=== PATIENT | female | born 1955 | race Caucasian/White ===

== ENCOUNTER 2016-09-20 11:32 | Emergency (ER) | payer MEDICARE, MEDICAID ==
[~2016-09-20] VITALS: Ht 160 cm; Wt 73.0 kg
[~2016-09-20 11:32] MED LIST: IBUP-1510 PO; LEVO125T8 PO; METH2.5T PO; PRED10TA23 PO; SULF500T8 PO
[2016-09-20] MEDS ORDERED: SODIUM CHLORIDE 0.9% 1,000 ML IV ONE (11:47)
[2016-09-20] MEDS ORDERED: ONDANSETRON HCL 4MG/2ML VIAL IV ONE (12:00)
[2016-09-20] MEDS ORDERED: MORPHINE SULFATE 4 MG/ML CPJ (NOT FOR IM USE) IV ONE (12:00)
[2016-09-20 12:08] LABS: BASOPHILS % 0.9 % (0.0-2.0); EOSINOPHILS % 3.7 % (0.0-5.0); HEMATOCRIT. 38.4 % (36.0-48.0); HEMOGLOBIN. 12.7 g/dL (12.0-16.0); MEAN CORPUSCULAR HEMOGLOBIN 28.8 pg (28.0-32.0); MEAN CORPUSCULAR VOLUME 87.4 fL (81.0-99.0); MEAN PLATELET VOLUME 8.2 fl (7.4-10.4); MONOCYTES % 6.2 % (2.0-8.0); NEUTROPHILS % 68.2 % (40.0-76.0); PLATELET 265 x1000/uL (130-400); RED BLOOD CELL COUNT 4.39 mill/uL (4.2-5.4); RED CELL DISTRIBUTION WIDTH 14.8 % (11.6-14.6); WHITE BLOOD COUNT 6.4 x1000/uL (4.5-11.0)
[2016-09-20 12:14] LABS: PROTHROMBIN TIME 10.8 sec
[2016-09-20 12:21] VITALS: BP 140/63
[2016-09-20 12:24] LABS: ALANINE AMINOTRANSFERASE 17 IU/L (13-61); ALBUMIN 3.7 g/dL (3.4-5.0); ANION GAP 13; CALCIUM 9.4 mg/dL (8.5-10.1); CARBON DIOXIDE 26 mEq/L (21-32); CHLORIDE 101 mEq/L (98-107); INDEX HEMOLYSI 1 (1-3); INDEX ICTERIC 1 (1-4); INDEX LIPEMIC 1 (1-3); LIPASE 133 IU/L (73-393); NT PRO B-TYPE NATRIURETIC PEP 49 pg/mL (5-125); TROPONIN I < 0.02 ng/mL (0.00-0.04); UREA NITROGEN BLOOD 10 mg/dL (7-21); eGFR > 60 mL/min (>60)
[2016-09-20 13:24] LABS: CLARITY URINE CLEAR (CLEAR); COLOR URINE YELLOW (YELLOW); GLUCOSE URINE NEGATIVE (NEGATIVE); KETONES URINE NEGATIVE (NEGATIVE); LEUKOCYTE ESTERASE URINE NEGATIVE (NEGATIVE); NITRITE URINE NEGATIVE (NEGATIVE); OCCULT BLOOD URINE NEGATIVE (NEGATIVE); PH URINE >=9.0 (4.5-8.0); PROTEIN URINE NEGATIVE (NEGATIVE); SPECIFIC GRAVITY URINE 1.011 (1.005-1.030); UROBILINOGEN URINE 0.2 E.U./dL (0.2-1.0)
== END 2016-09-20 15:04 | disposition home or self-care (01) ==
LOC: ER 13:21
DX: M51.26 Other intervertebral disc displacement, lumbar region (principal); M54.2 Cervicalgia; R10.32 Left lower quadrant pain; R07.89 Other chest pain; I10 Essential (primary) hypertension; E03.9 Hypothyroidism, unspecified; E11.9 Type 2 diabetes mellitus without complications; K57.30 Diverticulosis of large intestine without perforation or abscess without bleeding
CPT/HCPCS: 36415; 71010; 72131; 74176; 80053; 81003; 82962; 83605; 83690; 83880; 84484; 85025; 85610; 93005; 96361; 96374; 96375; 99285; J2270; J2405; J7030

== ENCOUNTER → 2017-03-15 | Outpatient (CLI) | payer MEDICARE, MEDICAID ==
[~2017-03-15] MED LIST changes: +GADOBENATE DIMEGLUMINE 529 MG/ML 10ML IV ONE; -IBUP-1510 PO; +IBUP-2030 PO
== END | disposition home or self-care (01) ==
LOC: MRI 10:05
PROVIDERS: ATTEND Neurological Surgery
DX: R51 Headache (principal)
CPT/HCPCS: 70553; A9577

== ENCOUNTER 2017-05-08 09:55 | Emergency (ER) | payer MEDICARE, MEDICAID ==
[~2017-05-08] VITALS: Ht 165.1 cm; Wt 75.0 kg
[~2017-05-08 09:55] MED LIST changes: -GADOBENATE DIMEGLUMINE 529 MG/ML 10ML IV ONE
[2017-05-08] MEDS ORDERED: LORAZEPAM 2MG/ML CPJ IV ONE (10:45)
[2017-05-08 10:59] LABS: CLARITY URINE CLOUDY (CLEAR); COLOR URINE YELLOW (YELLOW); GLUCOSE URINE NEGATIVE (NEGATIVE); KETONES URINE NEGATIVE (NEGATIVE); LEUKOCYTE ESTERASE URINE TRACE (NEGATIVE); NITRITE URINE NEGATIVE (NEGATIVE); OCCULT BLOOD URINE NEGATIVE (NEGATIVE); PH URINE >=9.0 (4.5-8.0); PROTEIN URINE NEGATIVE (NEGATIVE); SPECIFIC GRAVITY URINE 1.019 (1.005-1.030); UROBILINOGEN URINE 0.2 E.U./dL (0.2-1.0)
[2017-05-08 11:21] LABS: *AMPHETAMINES SCREEN URINE NEGATIVE (NEGATIVE); *BARBITURATES SCREEN URINE NEGATIVE (NEGATIVE); *BENZODIAZEPINES SCREEN URINE NEGATIVE (NEGATIVE); *COCAINE SCREEN URINE NEGATIVE (NEGATIVE); CANNABINOID URINE SCREEN NEGATIVE (NEGATIVE); METHADONE URINE SCREEN NEGATIVE (NEGATIVE); OPIATES URINE SCREEN NEGATIVE (NEGATIVE); PHENCYCLIDINE URINE SCREEN NEGATIVE (NEGATIVE)
[2017-05-08 11:21] LABS: BASOPHILS % 0.4 % (0.0-2.0); EOSINOPHILS % 1.7 % (0.0-5.0); HEMATOCRIT. 41.4 % (36.0-48.0); HEMOGLOBIN. 13.5 g/dL (12.0-16.0); LYMPHOCYTES % 12.8 % (20.0-50.0); MEAN CORPUSCULAR VOLUME 89.1 fL (81.0-99.0); MEAN PLATELET VOLUME 8.2 fl (7.4-10.4); MONOCYTES % 2.6 % (2.0-8.0); NEUTROPHILS % 82.5 % (40.0-76.0); PLATELET 264 x1000/uL (130-400); RED BLOOD CELL COUNT 4.64 mill/uL (4.2-5.4); RED CELL DISTRIBUTION WIDTH 13.8 % (11.6-14.6)
[2017-05-08 11:24] LABS: PROTHROMBIN TIME 10.8 sec (9.4-11.6)
[2017-05-08 11:34] LABS: CARBON DIOXIDE 26 mEq/L (21-32); CHLORIDE 101 mEq/L (98-107); TROPONIN I < 0.02 ng/mL (0.00-0.04)
[2017-05-08] MEDS ORDERED: METOCLOPRAMIDE HCL 10MG/2ML VIAL IV NR (13:00)
[2017-05-08 14:02] VITALS: BP 125/74
== END 2017-05-08 15:50 | disposition home or self-care (01) ==
LOC: ER 10:18
DX: F41.9 Anxiety disorder, unspecified (principal); R42 Dizziness and giddiness; R51 Headache; R11.0 Nausea; R00.2 Palpitations; I10 Essential (primary) hypertension; E11.9 Type 2 diabetes mellitus without complications; E03.9 Hypothyroidism, unspecified; R79.1 Abnormal coagulation profile; R20.2 Paresthesia of skin
CPT/HCPCS: 36415; 70450; 71010; 80053; 80305; 81001; 82962; 83605; 83690; 83880; 84484; 85025; 85610; 87040; 87086; 93005; 96374; 96375; 99285; J2060; J2765

== ENCOUNTER 2023-08-25 15:28 | Emergency (ER) | payer MEDICARE, MEDICAID ==
[~2023-08-25] VITALS: Ht 162.6 cm; Wt 77.0 kg
[2023-08-25 15:42] VITALS: O2SAT 100
[2023-08-25 16:17] LABS: BASOPHILS % 0.9 % (0.0-2.0); EOSINOPHILS % 2.8 % (0.0-5.0); HEMATOCRIT. 38.4 % (36.0-48.0); HEMOGLOBIN. 12.8 g/dL (12.0-16.0); LYMPHOCYTES % 25.5 % (20.0-50.0); MEAN CORPUSCULAR HEMOGLOBIN 31.4 pg (28.0-32.0); MEAN CORPUSCULAR HGB CONC 33.3 g/dL (31.0-37.0); MEAN CORPUSCULAR VOLUME 94.5 fL (81.0-99.0); MEAN PLATELET VOLUME 9.1 fl (7.4-10.4); MONOCYTES % 7.5 % (2.0-8.0); NEUTROPHILS % 63.3 % (40.0-76.0); PLATELET 219 x1000/uL (130-400); RED BLOOD CELL COUNT 4.06 mill/uL (4.2-5.4); RED CELL DISTRIBUTION WIDTH 14.5 % (11.6-14.6)
[2023-08-25 16:32] LABS: ALANINE AMINOTRANSFERASE 15 IU/L (10-49); ALBUMIN 4.4 g/dL (3.2-4.8); ASPARTATE AMINOTRANSFERASE 22 IU/L (<34); CALCIUM 9.3 mg/dL (8.7-10.4); CARBON DIOXIDE 23 mEq/L (21-32); CHLORIDE 101 mEq/L (98-107); CREATININE 0.7 mg/dL (0.6-1.0); GLUCOSE 93 mg/dL (70-105); POTASSIUM 3.8 mEq/L (3.5-5.1); SODIUM 130 mEq/L (136-145); UREA NITROGEN BLOOD 11 mg/dL (9-23)
[2023-08-25 16:36] LABS: TROPONIN I HIGH SENSITIVITY < 4 ng/L (3.0-34)
[2023-08-25] MEDS ORDERED: ONDANSETRON HCL 4MG/2ML INJ IV ONE (17:00)
[2023-08-25] MEDS ORDERED: MORPHINE SULFATE 4 MG/ML INJ (FOR IV/IM USE) IV ONE (17:00)
[2023-08-25 17:35] LABS: CLARITY URINE CLEAR (CLEAR); COLOR URINE DARK YELLOW (YELLOW); GLUCOSE URINE NEGATIVE (NEGATIVE); KETONES URINE 1+ (NEGATIVE); LEUKOCYTE ESTERASE URINE 1+ (NEGATIVE); NITRITE URINE NEGATIVE (NEGATIVE); OCCULT BLOOD URINE NEGATIVE (NEGATIVE); PH URINE 7.5 (4.5-8.0); PROTEIN URINE TRACE (NEGATIVE); SPECIFIC GRAVITY URINE 1.019 (1.005-1.030)
[2023-08-25 17:46] LABS: BACTERIA URINE 1+; RBC URINE 0-2 /hpf (0-2); SQUAMOUS EPITHELIAL CELL URINE 1+ /lpf (RARE/1+)
[2023-08-25] MEDS: SODIUM CHLORIDE 0.9% 1,000 ML IV ONE (19:02)
[2023-08-25] MEDS: CEFTRIAXONE 1GM/50ML 50 ML IV ONE (19:02)
[2023-08-25] MEDS: MORPHINE SULFATE 4 MG/ML INJ (FOR IV/IM USE) IV NR (19:03)
[2023-08-25] MEDS: ONDANSETRON HCL 4MG/2ML INJ IV NR (19:03)
[2023-08-25 19:13] VITALS: BP 174/81; PULSE 69; RESP 18; TEMP 98.2
[2023-08-25] MEDS ORDERED: CEPH500T MT (19:17)
[2023-08-25] MEDS ORDERED: ONDA4TAB11 PO (19:17)
== END 2023-08-25 20:12 | disposition home or self-care (01) ==
LOC: ER 15:28
DX: N39.0 Urinary tract infection, site not specified (principal); R10.32 Left lower quadrant pain; E86.0 Dehydration; E78.00 Pure hypercholesterolemia, unspecified; I10 Essential (primary) hypertension; Z90.710 Acquired absence of both cervix and uterus; Z79.899 Other long term (current) drug therapy
CPT/HCPCS: 99285; 74176; 96365; 96375; 80053; 81003; 83690; 85025; 84484; 36415; 93005; J0696; J2405; J2270; J7030

== ENCOUNTER 2024-11-01 15:55 | Emergency (ER) | payer MEDICAID ==
[~2024-11-01] VITALS: Ht 162.6 cm; Wt 76.0 kg
[~2024-11-01 15:55] MED LIST changes: +ALBU18HF2 IH; +ATOR40TA70 PO; +CELE-116 PO; +CHOL2000 PO; +DICY20TA2 PO; +FERR-63 PO; +FLUT1BLS12 IH; +FOLI-43 PO; +HYDR12.54 PO; +HYDR200T35 PO; -IBUP-2030 PO; +LEFL20TA21 PO; -LEVO125T8 PO; +LEVO150C2 PO; -METH2.5T PO; +METO-385 PO; +OMEP40CA20 MT; +PRED10TA PO; -PRED10TA23 PO; +SERT25TA PO; +SUCR1TAB MT; +TRAZ-251 PO
[2024-11-01 15:56] VITALS: TEMP 36.7; O2SAT 100
[2024-11-01 16:14] LABS: EOSINOPHILS % 1.1 % (0.0-5.0); HEMATOCRIT. 36.9 % (36.0-48.0); HEMOGLOBIN. 12.3 g/dL (12.0-16.0); LYMPHOCYTES % 20.9 % (20.0-50.0); MEAN CORPUSCULAR HEMOGLOBIN 31.1 pg (28.0-32.0); MEAN CORPUSCULAR HGB CONC 33.4 g/dL (31.0-37.0); MEAN CORPUSCULAR VOLUME 93.1 fL (81.0-99.0); MEAN PLATELET VOLUME 8.5 fl (7.4-10.4); MONOCYTES % 6.6 % (2.0-8.0); NEUTROPHILS % 70.4 % (40.0-76.0); PLATELET 261 x1000/uL (130-400); RED BLOOD CELL COUNT 3.96 mill/uL (4.2-5.4); RED CELL DISTRIBUTION WIDTH 14.1 % (11.6-14.6)
[2024-11-01 16:22] LABS: CHLORIDE 97 mEq/L (98-107); POTASSIUM 3.5 mEq/L (3.5-5.1); SODIUM 131 mEq/L (136-145)
[2024-11-01 16:23] LABS: CARBON DIOXIDE 27 mEq/L (21-32)
[2024-11-01 16:24] LABS: CALCIUM 9.3 mg/dL (8.7-10.4)
[2024-11-01 16:28] LABS: CREATININE 0.9 mg/dL (0.6-1.0); GLUCOSE 115 mg/dL (70-105); UREA NITROGEN BLOOD 18 mg/dL (9-23)
[2024-11-01 16:47] LABS: TROPONIN I HIGH SENSITIVITY < 4 ng/L (3.0-34)
[2024-11-01] MEDS: DIPHENHYDRAMINE 25MG CAPSULE PO ONE (17:10)
[2024-11-01] MEDS: METOCLOPRAMIDE HCL 10MG TABLET PO ONE (17:10)
[2024-11-01] MEDS: KETOROLAC 30MG/ML VIAL IM ONE (17:10)
[2024-11-01] MEDS ORDERED: IBUP-2029 MT (17:30)
[2024-11-01 17:40] VITALS: BP 137/69; PULSE 65; RESP 18; O2SAT 100
== END 2024-11-01 17:51 | disposition home or self-care (01) ==
LOC: ER 15:55
DX: R07.89 Other chest pain (principal); G43.909 Migraine, unspecified, not intractable, without status migrainosus; E03.9 Hypothyroidism, unspecified; E11.9 Type 2 diabetes mellitus without complications; J45.909 Unspecified asthma, uncomplicated; Z79.52 Long term (current) use of systemic steroids; Z79.69 Long term (current) use of other immunomodulators and immunosuppressants; Z79.890 Hormone replacement therapy; Z79.899 Other long term (current) drug therapy; Z79.51 Long term (current) use of inhaled steroids
CPT/HCPCS: 99285; 70450; 71045; 80048; 85025; 84484; 36415; 93005; 96372; J1885; Q0163; J8597